=== PATIENT | female | born 1995 | race Native Hawaiian/Other Pacific Islander ===

== ENCOUNTER 2022-02-06 08:27 | Emergency (ER) | payer OTHER ==
[~2022-02-06] VITALS: Ht 182.9 cm; Wt 118.2 kg
[2022-02-06] MEDS ORDERED: IBUPROFEN 600 MG TABLET PO ONE (11:30)
[2022-02-06 12:20] VITALS: BP 126/86
== END 2022-02-06 13:32 | disposition home or self-care (01) ==
LOC: EMS 08:29
DX: M76.61 Achilles tendinitis, right leg (principal)
CPT/HCPCS: 99283